=== PATIENT | male | born 1970 | race Caucasian/White ===

== ENCOUNTER 2017-12-04 12:44 | Emergency (ER) | payer MEDICAID ==
[2017-12-04 12:59] VITALS: TEMP 97.5
[2017-12-04] MEDS ORDERED: LORazepam 2 MG/ML INJ IVP ONE (13:46)
[2017-12-04] MEDS ORDERED: NS 1,000 ML IV ONE (13:46)
[2017-12-04] MEDS ORDERED: chlordiazePOXIDE 25 MG CAP PO ONE (13:47)
--- NOTE | 2017-12-04 13:47 | EDPHY ---
HPI/HX/ROS/PE/MDM Narrative: CHIEF COMPLAINT: Alcohol withdrawal HISTORY OF PRESENT ILLNESS: The patient is a 47 y/o male with a history of hypertension (treated with losartan) arriving for alcohol withdrawal. He reports he drinks a box of wine every day. His last drink was yesterday afternoon. He has associated abdominal pain and tremors. He denies nausea, vomiting, or any other associated symptoms. He denies history of withdrawal seizures. He denies illicit drug use or opiate use. He has been in contact with [facility] who asked that the patient come to the emergency department for further evaluation of his alcohol withdrawal and potential placement of Librium protocol. No fever, chills, chest pain, shortness of breath, palpitations, vomiting, diarrhea, urinary complaints, headache, lightheadedness. REVIEW OF SYSTEMS: Aside from elements discussed in the HPI, a comprehensive 10-point review of systems was reviewed and is negative. PAST MEDICAL HISTORY: Hypertension SOCIAL HISTORY: and son at bedside, smoker, alcohol dependancy VITAL SIGNS: Reviewed by me GENERAL: Well-developed, well-nourished, generally tremulous. HEENT: Atraumatic. Eyes: No icterus, no injection. Mouth: moist mucous membranes. Tremors tongue. No erythema or lesions. Neck: supple with no adenopathy. LUNGS: Clear to auscultation bilaterally, no wheezes, rhonchi or rales. CARDIAC: Tachycardic, no rubs, murmurs or gallops. ABDOMEN: Soft, nontender, nondistended, bowel sounds normal. BACK: No CVA tenderness. EXTREMITIES: No trauma. No edema. Range of motion is normal throughout. NEURO: Alert and oriented, grossly nonfocal. Generally tremulous. SKIN: Warm and dry, no rash. PSYCHIATRIC: Normal mentation, no agitation. ED Course: The patient presents with alcohol withdrawal. He is planning on going to the [facility] for withdrawal but was directed here for medication. I feel his withdrawal will benefit from IV fluids and Ativan before he begins the Librium protocol at the [facility]. Plan for IV fluids and Ativan with discharge to [facility] with Librium. Patient was improved with the Ativan. Vital signs stable eyes. Tremors were well controlled. [facility] Librium [facility]. MDM: Differential diagnoses for the patient's symptom complex was considered including but not limited to alcohol withdrawal, delirium tremens, vomiting, electrolyte abnormalities, acute alcohol intoxication, substance seeking behavior.. - Data Points Laboratory Results: Laboratory Results 12/04/17 13:50 12/04/17 13:50 12/04/17 12/04/17 13:50 13:50 WBC 6.10 10^3/uL 10^3/uL (3.80-9.50) RBC 4.54 10^6/uL 10^6/uL (4.40-6.38) Hgb 15.7 g/dL g/dL (13.7-17.5) Hct 44.2 % % (40.0-51.0) MCV 97.4 fL fL (81.5-99.8) MCH 34.6 pg H pg (27.9-34.1) MCHC 35.5 g/dL g/dL (32.4-36.7) RDW 12.4 % % (11.5-15.2) Plt Count 148 10^3/uL L 10^3/uL (150-400) MPV 9.6 fL fL (8.7-11.7) Neut % (Auto) 81.8 % H % (39.3-74.2) Lymph % (Auto) 10.2 % L % (15.0-45.0) [place] % (Auto) 6.7 % % (4.5-13.0) Eos % (Auto) 0.3 % L % (0.6-7.6) Baso % (Auto) 0.7 % % (0.3-1.7) Nucleat RBC Rel Count 0.0 % % (0.0-0.2) Absolute Neuts (auto) 4.99 10^3/uL 10^3/uL (1.70-6.50) Absolute Lymphs (auto) 0.62 10^3/uL L 10^3/uL (1.00-3.00) Absolute Monos (auto) 0.41 10^3/uL 10^3/uL (0.30-0.80) Absolute Eos (auto) 0.02 10^3/uL L 10^3/uL (0.03-0.40) Absolute Basos (auto) 0.04 10^3/uL 10^3/uL (0.02-0.10) Absolute Nucleated RBC 0.00 10^3/uL 10^3/uL (0-0.01) Immature Gran % 0.3 % % (0.0-1.1) Immature Gran # 0.02 10^3/uL 10^3/uL (0.00-0.10) Sodium 136 mEq/L mEq/L (135-145) Potassium 4.2 mEq/L mEq/L (3.5-5.2) Chloride 97 mEq/L mEq/L (97-110) Carbon Dioxide 24 mEq/l mEq/l (22-31) Anion Gap 15 mEq/L mEq/L (8-16) BUN 9 mg/dL mg/dL (7-23) Creatinine 0.7 mg/dL mg/dL (0.7-1.3) Estimated GFR > 60 Glucose 115 mg/dL H mg/dL (70-100) Calcium 9.3 mg/dL mg/dL (8.5-10.4) Total Bilirubin 1.1 mg/dL mg/dL (0.1-1.4) Conjugated Bilirubin 0.5 mg/dL mg/dL (0.0-0.5) Unconjugated Bilirubin 0.6 mg/dL mg/dL (0.0-1.1) AST 110 IU/L H IU/L (17-59) ALT 82 IU/L H IU/L (21-72) Alkaline Phosphatase 89 IU/L IU/L (38-126) Total Protein 7.8 g/dL g/dL (6.3-8.2) Albumin 4.7 g/dL g/dL (3.5-5.0) Lipase 538 IU/L H IU/L (23-300) Medications Given: Discontinued Medications Chlordiazepoxide (Librium 25 Mg Prepack#6) 1 btl TAKEHOME EDNOW ONE Stop: 12/04/17 13:59 Last Admin: 12/04/17 14:22 Dose: 1 btl Chlordiazepoxide HCl (Librium) 25 mg PO EDNOW ONE Stop: 12/04/17 13:48 Last Admin: 12/04/17 13:56 Dose: 25 mg Sodium Chloride (Ns) 1,000 mls @ 0 mls/hr IV ONCE ONE; Wide Open PRN Reason: Protocol Stop: 12/04/17 13:47 Last Admin: 12/04/17 13:56 Dose: 1,000 mls Lorazepam (Ativan Injection) 1 mg IVP EDNOW ONE Stop: 12/04/17 13:47 Last Admin: 12/04/17 13:55 Dose: 1 mg General Time Seen by Provider: 12/04/17 13:33 Initial Vital Signs: Initial Vital Signs Temperature (C) 36.4 C 12/04/17 12:55 Heart Rate 100 12/04/17 12:55 Respiratory Rate 18 12/04/17 12:55 Blood Pressure 173/96 H 12/04/17 12:55 O2 Sat (%) 95 12/04/17 12:55 O2 Delivery Mode Room Air Allergies/Adverse Reactions: No Known Allergies Allergy (Unverified 12/04/17 12:56) Home Medications: Medication Instructions Recorded Bp Med 12/04/17 Sertraline HCl [Zoloft 50mg (*)] 50 mg PO DAILY 12/04/17 Departure - Departure Disposition: Home, Routine, Self-Care Clinical Impression: Alcohol withdrawal Qualifiers: Complication of substance-induced condition: uncomplicated Qualified Code(s): F10.230 - Alcohol dependence with withdrawal, uncomplicated Condition: Good Instructions: Chlordiazepoxide (By mouth), Alcohol Withdrawal (ED) Additional Instructions: Proceed to the arc. Librium protocol please Referrals: [facility] Hours [Outside] - As per Instructions Report Scribed for: Bonita Bailey Report Scribed by: Toña Norris Date of Report: 12/04/17 Time of Report: 13:49 Physician Review and Approval Statement: Portions of this note were transcribed by a medical lab scientist. I personally performed a history, physical exam, medical decision making, and confirmed accuracy of information the transcribed note.
[2017-12-04] MEDS ORDERED: CHLORDIAZEPOXIDE 25MG PREPK#6 BTL TAKEHOME ONE (13:58)
[2017-12-04 14:10] LABS: PLATELET COUNT 148 10^3/uL (150-400)
[2017-12-04 14:25] VITALS: RESP 16
[2017-12-04 15:24] VITALS: BP 150/88; PULSE 81; O2SAT 93
== END 2017-12-04 15:25 | disposition home or self-care (01) ==
DX: F10.230 Alcohol dependence with withdrawal, uncomplicated (principal); I10 Essential (primary) hypertension; F17.200 Nicotine dependence, unspecified, uncomplicated; E86.9 Volume depletion, unspecified
CPT/HCPCS: 96374; J2060